=== PATIENT | female | born 1985 | race Caucasian/White ===

== ENCOUNTER → 2017-04-29 | Outpatient (CLI) | payer OTHER ==
--- NOTE | 2017-04-29 23:29 | MR ---
MRI CERVICAL SPINE and thoracic spine: CLINICAL HISTORY: Neck and back pain TECHNIQUE: Multiplanar, multisequence imaging of the cervical spine is performed' COMPARISON: 06/28/2015 FINDINGS: Cervical vertebra have normal alignment. There is a small posterior disc bulge at C3-4. There are sma ll posterior disc herniations at C5-6 C6-7. C6-7 disc herniation is larger. There is a developmentall y large cervical spinal canal and no significant spinal stenosis. Canal and measures 8 to 9 mm at C6- 7. C6-7 disc herniation is slightly to the left side. Cervical spinal cord has normal signal pattern. There is no evidence of edema. Visualized brainstem is intact. The thoracic vertebra have normal alignment. Disc spaces are fairly normal. Thoracic spinal cord has normal signal pattern without evidence of edema. There is no thoracic spinal stenosis. There is no co mpression fracture. There is no thoracic paraspinal mass. IMPRESSION: There is posterior disc bulging and herniation at several levels of the cervical spine as above. The largest is at C6-7 posterior central and left-sided disc herniation. Cervical spine appears overall s table compared to previous exam. C5-6 disc herniation is slightly smaller. Negative MR scan of the thoracic spine. No thoracic disc herniation or spinal stenosis. No fracture. No change.
== END | disposition home or self-care (01) ==
LOC: RADMRIMAIN 12:42
PROVIDERS: ATTEND Psychiatry & Neurology Neurology
DX: M50.223 Other cervical disc displacement at C6-C7 level (principal); M54.5 Low back pain; M54.6 Pain in thoracic spine
CPT/HCPCS: 72141; 72146

== ENCOUNTER → 2017-12-20 | Outpatient (CLI) | payer OTHER ==
--- NOTE | 2017-12-20 13:59 | MR ---
EXAMINATION TYPE: MR lumbar spine wo con DATE OF EXAM: 12/20/2017 COMPARISON: 06/28/2015 HISTORY: 32-year-old female with low back pain TECHNIQUE: Multiplanar, multisequence images of the lumbar spine were acquired. Findings: Vertebral body heights are preserved and alignment is maintained. There may be very mild early facet degenerative changes of the lower lumbar spine. Relatively maintained hydration of the intervertebral discs. No focal disc herniation. Conus medullaris is normal. No prevertebral or paravertebral soft tissue abnormality. No spinal canal or neuroforaminal stenosis. IMPRESSION: Mild facet arthropathy lower lumbar spine. Otherwise, unremarkable MRI lumbar spine.
== END | disposition home or self-care (01) ==
LOC: RADMRIMAIN 12:38
PROVIDERS: ATTEND Nurse Practitioner Acute Care
DX: M46.96 Unspecified inflammatory spondylopathy, lumbar region (principal)
CPT/HCPCS: 72148

== ENCOUNTER 2020-02-08 14:15 | Emergency (ER) | payer OTHER ==
[2020-02-08 14:23] VITALS: RESP 18; TEMP 98.9
[2020-02-08] MEDS ORDERED: KETOROLAC 60 MG/2 ML VIAL IM STA (15:02)
[2020-02-08 15:10] LABS: Appearance,Urine Clear (Clear); Bilirubin,Urine Negative (Negative); Blood,Urine Negative (Negative); Color,Urine Light Yellow; Glucose,Urine (UA) Negative (Negative); Ketones,Urine Negative (Negative); Leukocyte Esterase,Urine Negative (Negative); Nitrite,Urine Negative (Negative); PH, Urine 6.5 (5.0-8.0); Protein,Urine Negative (Negative); Specific Gravity,Urine 1.005 (1.001-1.035); Urobilinogen,Urine <2.0 mg/dL (<2.0)
--- NOTE | 2020-02-08 15:11 | ED ---
General Adult HPI - General Chief complaint: Neck Pain/Injury Stated complaint: lower back pain Time Seen by Provider: 02/08/20 14:34 Source: patient, RN notes reviewed Mode of arrival: ambulatory Limitations: no limitations - History of Present Illness Initial comments: 34-year-old female presents emergency Department chief complaint of left mid to low back pain. Patient states that it started this morning. Patient states any movement makes it severely worse. Patient states that she does have history of frequent UTIs but states that she does not feel she has any symptoms or fevers or chills no chest pain or shortness of breath. She states when she turns twists bends it increases her symptoms she denies any bowel, bladder incontinence or retention denies any abdominal pain today she has no lower extremity symptoms no difficulty ambulating. Patient states that she took Motrin earlier this morning with no significant relief. - Related Data Home Medications Medication Instructions Recorded Confirmed Loratadine [Claritin] 10 mg PO DAILY 09/13/14 09/13/14 busPIRone HCl [Buspar] 5 mg PO HS 09/13/14 09/13/14 Previous Rx's Medication Instructions Recorded Amoxicillin/Potassium Clav 1 each PO Q12HR #20 tab 09/13/14 [Augmentin 875-125 Tablet] Orphenadrine [Norflex] 100 mg PO Q12H #14 tablet.er 02/08/20 predniSONE 50 mg PO DAILY #5 tab 02/08/20 Allergies Allergy/AdvReac Type Severity Reaction Status Date / Time No Known Allergies Allergy Verified 02/08/20 14:23 Review of Systems ROS Statement: Those systems with pertinent positive or pertinent negative responses have been documented in the HPI. ROS Other: All systems not noted in ROS Statement are negative. Past Medical History Past Medical History: No Reported History Additional Past Medical History / Comment(s): chronic back pain History of Any Multi-Drug Resistant Organisms: None Reported Past Surgical History: Section Past Psychological History: No Psychological Hx Reported Smoking Status: Former smoker Past Alcohol Use History: Occasional Past Drug Use History: None Reported General Exam Limitations: no limitations General appearance: alert, in no apparent distress Head exam: Present: atraumatic, normocephalic, normal inspection Eye exam: Present: normal appearance, PERRL, EOMI. Absent: scleral icterus, conjunctival injection, periorbital swelling ENT exam: Present: normal exam, normal oropharynx, mucous membranes moist Neck exam: Present: normal inspection, full ROM. Absent: tenderness, meningismus, lymphadenopathy Respiratory exam: Present: normal lung sounds bilaterally. Absent: respiratory distress, wheezes, rales, rhonchi, stridor Cardiovascular Exam: Present: regular rate, normal rhythm, normal heart sounds. Absent: systolic murmur, diastolic murmur, rubs, gallop, clicks GI/Abdominal exam: Present: soft, normal bowel sounds. Absent: distended, tenderness, guarding, rebound, rigid Back exam: Present: full ROM, tenderness (Mild the left lower thoracic, lumbar paraspinal tenderness), CVA tenderness (L), muscle spasm, paraspinal tenderness. Absent: CVA tenderness (R), vertebral tenderness Neurological exam: Present: alert, oriented X3, CN II-XII intact Skin exam: Present: warm, dry, intact, normal color. Absent: rash Course Vital Signs 02/08/20 14:20 Temperature 98.9 F Pulse Rate 101 H Respiratory 18 Rate Blood Pressure 127/81 O2 Sat by Pulse 98 Oximetry Medical Decision Making - Medical Decision Making X-rays did not reveal any major abnormality's. She is neurologically intact no red flag symptoms. Patient's pain was simply improved after Toradol was given additional pain control. Patient be discharged in stable condition with close follow-up. Return parameters were discussed. - Lab Data Lab Results 02/08/20 02/08/20 Range/Units 15:02 15:02 Urine Color Light Yellow Urine Appearance Clear (Clear) Urine pH 6.5 (5.0-8.0) Ur Specific [place] 1.005 (1.001-1.035) Urine Protein Negative (Negative) Urine Glucose (UA) Negative (Negative) Urine Ketones Negative (Negative) Urine Blood Negative (Negative) Urine Nitrite Negative (Negative) Urine Bilirubin Negative (Negative) Urine Urobilinogen <2.0 (<2.0) mg/dL Ur Leukocyte Esterase Negative (Negative) Urine HCG, Qual Not Detected (Not Detectd) Disposition Clinical Impression: Back strain Disposition: HOME SELF-CARE Condition: Stable Instructions (If sedation given, give patient instructions): Back Pain (ED) Additional Instructions: Please return to the Emergency Department if symptoms worsen or any other concerns. Prescriptions: Orphenadrine [Norflex] 100 mg PO Q12H #14 tablet.er predniSONE 50 mg PO DAILY #5 tab Is patient prescribed a controlled substance at d/c from ED?: No Referrals: Warren Deluna DO [Primary Care Provider] - 1-2 days Time of Disposition: 16:25
[2020-02-08] MEDS ORDERED: HYDROcodone/APAP 7.5-325MG 1 EACH TAB PO ONE (15:50)
[2020-02-08] MEDS ORDERED: ACET/COD 300 MG/30 MG STARTER PACK 6 TAB BTL PO STA (16:19)
[2020-02-08 16:46] VITALS: BP 107/60; PULSE 77
--- NOTE | 2020-02-08 16:50 | XR ---
EXAMINATION TYPE: XR thoracic spine 2V DATE OF EXAM: 02/08/2020 COMPARISON: NONE HISTORY: Back pain TECHNIQUE: 3 views FINDINGS: Thoracic vertebra have fairly normal spacing and alignment. Posterior elements are intact. There is no paraspinal mass. IMPRESSION: Negative thoracic spine exam. No fracture.
--- NOTE | 2020-02-08 16:53 | XR ---
EXAMINATION TYPE: XR lumbar spine 2 or 3V DATE OF EXAM: 02/08/2020 COMPARISON: NONE HISTORY: Back pain TECHNIQUE: 3 views FINDINGS: Lumbar vertebra have normal alignment. Posterior elements are intact. Disc spaces are celestine l. There is no compression fracture. Sacroiliac joints are intact. IMPRESSION: Negative lumbar spine exam. No fracture.
== END 2020-02-08 16:50 | disposition home or self-care (01) ==
LOC: EC 14:15
DX: S39.012A Strain of muscle, fascia and tendon of lower back, initial encounter (principal); Z87.891 Personal history of nicotine dependence; Z79.899 Other long term (current) drug therapy; X58.XXXA Exposure to other specified factors, initial encounter
CPT/HCPCS: 81003; 81025; 72070; 72100; 99283; 96372; J1885

== ENCOUNTER → 2021-05-01 | Outpatient (CLI) | payer OTHER ==
--- NOTE | 2021-05-02 06:12 | MR ---
EXAMINATION TYPE: MR cspine/tspine wo con DATE OF EXAM: 05/01/2021 COMPARISON: Prior MRI cervical and thoracic spine April 29, 2017 HISTORY: Headaches and numbness down both arms. Mid back pain since 2005 after falling off parasail. TECHNIQUE: Multiplanar, multisequence imaging of cervical and thoracic spine are performed without co ntrast FINDINGS: C-SPINE: Sagittal images of the cervical spine show the craniocervical junction to remain within normal limits . The cervical and upper thoracic spinal cord remains normal in caliber and signal. Vertebral align ment is straightened. There is slight grade 1 retrolisthesis C6 on C7 more prominent than prior stud y. [id number] disc space narrowing C5-C6 level now present. The bone marrow signal intensity re latrice within normal limits. No significant spurring is present. Axial images show the C2-C3 level to remain within normal limits. Axial images at the C3-C4 level redemonstrate mild broad-based posterior disc protrusion minimally ef facing anterior thecal sac, there is stable mild bilateral neural foraminal narrowing at this level i dentified. Axial images at C4-C5 level remains within normal limits. Axial images at the C5-C6 level show broad-based right paracentral disc protrusion and early uncovert ebral facet degenerative changes with effacement of the anterolateral thecal sac and [id number] left greater than right bilateral neural foraminal narrowing. No significant change from most recent MRI. Axial images at C6-C7 level show spondylolisthesis and broad-based left paracentral disc protrusion e ffacing anterior thecal sac on axial image 13 and causing moderate right-sided neural foraminal narro wing more prominent than prior MRI. Axial images at C7-T1 level are felt within normal limits. IMPRESSION: Multilevel degenerative changes as detailed above. New spondylolisthesis and more promin ent degenerative change C6-C7 level noted. T-SPINE: Spinal cord redemonstrates normal course, caliber, and signal as it courses the thoracic spine. Vert ebral body heights and alignment remain satisfactory. Bone marrow signal intensity fairly well-preser silvana with suspected some artifact at T9 vertebra. No significant spurring. No large new disc herniatio n. Review of the axial images shows no significant spinal canal stenosis or neural foraminal narrowing a t any thoracic level. No significant finding in the visualized thorax or upper abdomen. IMPRESSION: No significant new abnormality in the thoracic spine.
== END | disposition home or self-care (01) ==
LOC: RADMRIMAIN 15:02
PROVIDERS: ATTEND Nurse Practitioner Family
DX: M43.12 Spondylolisthesis, cervical region (principal); M47.812 Spondylosis without myelopathy or radiculopathy, cervical region; M48.02 Spinal stenosis, cervical region; M50.223 Other cervical disc displacement at C6-C7 level
CPT/HCPCS: 72141; 72146